=== PATIENT | male | born 1990 | race Caucasian/White ===

== ENCOUNTER 2017-02-18 22:53 | Emergency (ER) | payer MEDICAID ==
--- NOTE | 2017-02-19 15:54 | ER ---
ADMIT: 02/18/2017 RM/LOC: ER [facility] MR#: [id number] [address] [facility] [id number] [address] R[address] [place], [place] [id number] Emergency Room Report SEX: M AGE: 26 : 1990 DATE: 02/18/2017 A 26-year-old, skateboarding, fell, laceration to the right brow line approximately 2.5 cm in length, sutured with #3, 6-0 Prolene. Instructed to remove the sutures in 6 to 7 days. Laceration and repair. Trav Coley MD/ yamilkal JOB #: [id number] CC: Juan Quezada MD, Attending Physician Dexter eMyer MD, Family Physician
== END 2017-02-18 23:40 | disposition home or self-care (01) ==
LOC: ER 22:53
PROC: 0HQ1XZZ Repair Face Skin, External Approach (ICD-10-PCS; principal; 2017-02-18)
DX: S01.111A Laceration without foreign body of right eyelid and periocular area, initial encounter (principal); Z23 Encounter for immunization; V00.131A Fall from skateboard, initial encounter; Y93.51 Activity, roller skating (inline) and skateboarding; Y92.830 Public park as the place of occurrence of the external cause